=== PATIENT | male | born 1980 | race Caucasian/White ===

== ENCOUNTER 2017-08-24 00:02 | Inpatient (IN) | payer MEDICAID, OTHER ==
[~2017-08-24] VITALS: Ht 177.8 cm; Wt 96.2 kg
[2017-08-24] MEDS ORDERED: ASPIRIN 81MG TABLET PO ONE (00:30)
[2017-08-24 00:48] LABS: BASOPHILS % 0.3 % (0.0-2.0); HEMATOCRIT. 41.9 % (42.0-52.0); HEMOGLOBIN. 14.1 g/dL (14.0-18.0); LYMPHOCYTES % 10.9 % (20.0-50.0); MEAN CORPUSCULAR HEMOGLOBIN 25.4 pg (28.0-32.0); MEAN CORPUSCULAR VOLUME 75.9 fL (80.0-94.0); MEAN PLATELET VOLUME 8.4 fl (7.4-10.4); MONOCYTES % 6.6 % (2.0-8.0); NEUTROPHILS % 81.2 % (40.0-76.0); PLATELET 244 x1000/uL (130-400); RED BLOOD CELL COUNT 5.53 mill/uL (4.7-6.1); RED CELL DISTRIBUTION WIDTH 13.1 % (11.6-14.6)
[2017-08-24 00:59] LABS: INR 1.2; PARTIAL THROMBOPLASTIN TIME 37.3 sec (23.4-31.0); PROTHROMBIN TIME 12.7 sec (9.4-11.6)
[2017-08-24 01:01] LABS: CHLORIDE 105 mEq/L (98-107)
[2017-08-24 01:07] LABS: TROPONIN I < 0.02 ng/mL (0.00-0.04)
[2017-08-24] MEDS ORDERED: LEVOFLOXACIN 750MG PREMIX 150 ML IV ONE (01:15)
[2017-08-24] MEDS ORDERED: MORPHINE SULFATE 4 MG/ML CPJ (NOT FOR IM USE) IV ONE (01:15)
[2017-08-24] MEDS ORDERED: ENOXAPARIN 100MG/ML SYR SUBCUT NR (01:45)
[2017-08-24] MEDS ORDERED: IOHEXOL-350 100 ML BOTTLE ONE (03:47)
[2017-08-24 06:57] VITALS: BP 102/68
[2017-08-24 08:00] VITALS: BP 110/74
[2017-08-24] MEDS ORDERED: CHOL50003 PO (09:07)
[2017-08-24] MEDS ORDERED: SITA100T11 PO (09:07)
[2017-08-24] MEDS ORDERED: LOV80 SQ (09:07)
[2017-08-24] MEDS ORDERED: ALBU05 NEB (09:07)
[2017-08-24] MEDS ORDERED: NPH,100I SQ (09:07)
[2017-08-24] MEDS ORDERED: VITA1CAP PO (09:07)
[2017-08-24] MEDS ORDERED: ACET-2708 PO (09:07)
[2017-08-24] MEDS ORDERED: METF10002 PO (09:07)
[2017-08-24] MEDS ORDERED: LISI10TA5 PO (09:07)
[2017-08-24] MEDS ORDERED: GLIP10TA10 PO (09:07)
[2017-08-24] MEDS ORDERED: N325 SL (09:07)
[2017-08-24] MEDS ORDERED: WARF5TAB76 PO (09:07)
[2017-08-24] MEDS ORDERED: ATOR20TA65 PO (09:07)
[2017-08-24] MEDS ORDERED: IPRATROPIUM/ALBUTEROL 0.5-3(2.5)MG/3ML NEB INH PRN (10:15)
[2017-08-24] MEDS ORDERED: DIPHENHYDRAMINE 50MG/ML VIAL IV PRN (10:15)
[2017-08-24] MEDS ORDERED: CLONIDINE 0.1MG TABLET PO PRN (10:15)
[2017-08-24] MEDS ORDERED: DEXTROSE 50% WATER 50ML SYRINGE IV PRN (10:15)
[2017-08-24] MEDS ORDERED: ACETAMINOPHEN 325MG TABLET PO PRN (10:15)
[2017-08-24] MEDS ORDERED: HYDROCODONE/ACETAMINOPHEN 5/325MG TABLET PO PRN (10:15)
[2017-08-24] MEDS ORDERED: ONDANSETRON HCL 4MG/2ML VIAL IV PRN (10:15)
[2017-08-24] MEDS ORDERED: POTASSIUM CHLORIDE 20MEQ TABLET SR PO NR (10:30)
[2017-08-24] MEDS ORDERED: ENOXAPARIN 80MG/0.8ML SYR SUBCUT SCH (10:33)
[2017-08-24] MEDS ORDERED: ACETAMINOPHEN 500MG TABLET PO PRN (10:45)
[2017-08-24] MEDS ORDERED: MEDICATION NOT ON FORMULARY EA (Metformin Hcl 1 TAB) PO SCH (10:45)
[2017-08-24] MEDS ORDERED: ALBUTEROL (0.083%) 2.5MG/3ML NEB HHN PRN (10:45)
[2017-08-24] MEDS ORDERED: CHOLECALCIFEROL 50000 UNIT PO SCH (10:45)
[2017-08-24] MEDS: LISINOPRIL 10MG TABLET PO SCH (11:02)
[2017-08-24] MEDS ORDERED: CHOLECALCIFEROL (D3) 1000 UNIT TABLET PO ONE (11:30)
[2017-08-24 12:00] VITALS: BP 108/61
[2017-08-24] MEDS ORDERED: ERGOCALCIFEROL 50000UNITS CAPSULE PO NR (12:30)
[2017-08-24] MEDS: BLOOD SUGAR DIAGNOSTIC STRIP TEST SCH ×3 (12:40→21:20)
[2017-08-24] MEDS: LINAGLIPTIN 5MG TABLET PO SCH (12:46)
[2017-08-24] MEDS: INSULIN LISPRO 100 UNITS/ML SUBCUT SCH ×3 (13:12→21:20)
[2017-08-24 16:00] VITALS: BP 97/62
[2017-08-24] MEDS ORDERED: WARFARIN SODIUM 10MG TABLET PO SCH (18:00)
[2017-08-24] MEDS: METFORMIN HCL 500MG TABLET PO SCH (18:31)
[2017-08-24] MEDS: GLIPIZIDE 10MG TABLET PO SCH (18:31)
[2017-08-24 18:45] LABS: *AMPHETAMINES SCREEN URINE NEGATIVE (NEGATIVE); *BARBITURATES SCREEN URINE NEGATIVE (NEGATIVE); *BENZODIAZEPINES SCREEN URINE NEGATIVE (NEGATIVE); *COCAINE SCREEN URINE NEGATIVE (NEGATIVE); METHADONE URINE SCREEN NEGATIVE (NEGATIVE); OPIATES URINE SCREEN PRESUMTIVE POSITIVE (NEGATIVE)
[2017-08-24 18:46] LABS: CANNABINOID URINE SCREEN NEGATIVE (NEGATIVE); PHENCYCLIDINE URINE SCREEN NEGATIVE (NEGATIVE)
[2017-08-24 20:00] VITALS: BP 110/64
[2017-08-24] MEDS ORDERED: ATORVASTATIN CALCIUM 20MG TABLET PO SCH (21:00)
[2017-08-24] MEDS: ENOXAPARIN 100MG/ML SYR SUBCUT SCH (21:18)
[2017-08-25] VITALS: BP 113/64
[2017-08-25 04:00] VITALS: BP 116/74
[2017-08-25] MEDS: BLOOD SUGAR DIAGNOSTIC STRIP TEST SCH ×2 (06:02→13:08)
[2017-08-25 06:27] LABS: BASOPHILS % 0.5 % (0.0-2.0); EOSINOPHILS % 2.9 % (0.0-5.0); HEMATOCRIT. 40.7 % (42.0-52.0); HEMOGLOBIN. 13.6 g/dL (14.0-18.0); LYMPHOCYTES % 51.3 % (20.0-50.0); MEAN CORPUSCULAR HEMOGLOBIN 25.8 pg (28.0-32.0); MEAN CORPUSCULAR VOLUME 77.7 fL (80.0-94.0); MEAN PLATELET VOLUME 9.4 fl (7.4-10.4); MONOCYTES % 7.7 % (2.0-8.0); NEUTROPHILS % 37.6 % (40.0-76.0); PLATELET 229 x1000/uL (130-400); RED BLOOD CELL COUNT 5.25 mill/uL (4.7-6.1); RED CELL DISTRIBUTION WIDTH 13.4 % (11.6-14.6)
[2017-08-25 06:59] LABS: CHLORIDE 105 mEq/L (98-107)
[2017-08-25 07:02] LABS: INR 1.2
[2017-08-25 07:05] LABS: HDL CHOLESTEROL 32 mg/dL (40-59); LDL CHOLESTEROL 132 mg/dL (5-100)
[2017-08-25 07:39] VITALS: BP 116/71
[2017-08-25] MEDS: INSULIN LISPRO 100 UNITS/ML SUBCUT SCH ×2 (08:50→13:17)
[2017-08-25] MEDS: LISINOPRIL 10MG TABLET PO SCH (08:58)
[2017-08-25] MEDS: ENOXAPARIN 100MG/ML SYR SUBCUT SCH (08:58)
[2017-08-25] MEDS: LINAGLIPTIN 5MG TABLET PO SCH (08:59)
[2017-08-25] MEDS: METFORMIN HCL 500MG TABLET PO SCH (08:59)
[2017-08-25] MEDS: GLIPIZIDE 10MG TABLET PO SCH (08:59)
[2017-08-25] MEDS ORDERED: MEDICATION NOT ON FORMULARY EA (Sitagliptin Phosphate (Januvia) 1 TAB) PO SCH (09:00)
[2017-08-25 13:00] VITALS: BP 111/64
[2017-08-25 15:15] VITALS: BP 111/64
[2017-08-25 15:45] VITALS: BP 107/3
[2017-08-25] MEDS ORDERED: WARFARIN SODIUM 10MG TABLET PO NR (16:00)
== END 2017-08-25 18:50 | disposition home or self-care (01) | DRG 311 ==
LOC: ER 00:02 → 7WST 01:19 → EDBEDREQ 01:22 → ENRESERV 04:54 → CANRESERV 04:54 → ENRESERV 05:34
PROVIDERS: ADMIT Internal Medicine; ATTEND Internal Medicine
DX: I24.9 Acute ischemic heart disease, unspecified (principal); E11.65 Type 2 diabetes mellitus with hyperglycemia; E66.9 Obesity, unspecified; E87.6 Hypokalemia; R94.31 Abnormal electrocardiogram [ECG] [EKG]; R79.1 Abnormal coagulation profile; Z79.01 Long term (current) use of anticoagulants; Z79.84 Long term (current) use of oral hypoglycemic drugs; Z79.899 Other long term (current) drug therapy; Z86.711 Personal history of pulmonary embolism; Z86.718 Personal history of other venous thrombosis and embolism; Z90.49 Acquired absence of other specified parts of digestive tract; Z88.0 Allergy status to penicillin; Z68.30 Body mass index [BMI] 30.0-30.9, adult
CPT/HCPCS: 36415; 71045; 71275; 80053; 80061; 80305; 82962; 83036; 83605; 83880; 84484; 85025; 85610; 85730; 86850; 86900; 87040; 87086; 87493; 93005; 93306; 96372; 96374; 96375; 99285; J1650; J1815; J1956; J2270; Q9967